=== PATIENT | female | born 1970 | race Caucasian/White ===

== ENCOUNTER 2023-02-13 11:57 | Emergency (ER) | payer MEDICAID, SELFPAY ==
[2023-02-13] VITALS (10 sets, daily range): BP systolic 97–125; BP diastolic 55–68; PULSE 80–103; RESP 16–25; TEMP 37.7; O2SAT 96–100; BMI 22.3
--- NOTE | 2023-02-13 12:08 | W.ED.BACK ---
HPI - Back Pain/Injury General: Chief Complaint: Back Pain/Injury Stated Complaint: BACK PAIN Time Seen by Provider: 02/13/23 11:59 Source: patient Mode of arrival: ambulatory History of Present Illness: 52-year-old female presents emergency room with complaints of severe back pain and fever at home she has been dizzy and nauseous. She has not had any particular shortness of breath. She has not had any vomiting she has had some moderate dysuria. Severe flank pain right worse than the left. MD elicited complaint: back pain Onset (ago): hour(s) Timing: constant Severity: moderate Quality: aching Location: lumbar spine Exacerbating factors: none Relieving factors: none Associated symptoms: Deny abdominal pain, arthralgias, chills, change in bowel habits, difficulty walking, dysuria, fatigue, fecal incontinence, fever(s), hematuria, myalgias, nausea, numbness, syncope, tingling/numbness/burning, urinary frequency, urinary urgency, vomiting or weakness Review of Systems Const: Denies: fever(s), chills or fatigue Card: Denies: chest pain or syncope Resp: Denies: dyspnea GI: Denies: abdominal pain, nausea, vomiting, fecal incontinence or change in bowel habits : Denies: dysuria, urinary frequency, urinary urgency or hematuria Musc: Reports: back pain; Denies: neck pain Skin/Breast: Denies: rash Neuro: Denies: difficulty walking Physical Exam Const: GENERAL APPEARANCE: cooperative and comfortable ORIENTATION/CONSCIOUSNESS: Yes awake, Yes oriented to person, Yes oriented to place and Yes oriented to time HENMT: COMMON NORMALS: normocephalic, atraumatic and hearing grossly normal bilaterally HEAD & SCALP: normocephalic and atraumatic Resp: COMMON NORMALS: normal respiratory effort, No retractions, No use of accessory muscles and clear to auscultation bilaterally AUSCULTATION: clear to auscultation bilaterally Cardio: COMMON NORMALS: regular rate, regular rhythm and No murmurs present (Cardio) RATE: regular rate RHYTHM: regular rhythm GI: COMMON NORMALS: Soft to palpation and No hepatosplenomegaly present AUSCULTATION: Yes normoactive bowel sounds PALPATION: Yes Soft to palpation, No Tenderness to palpation present (GI), No Guarding due to palpation present (GI) and Yes No hepatosplenomegaly present : BLADDER/KIDNEY EXAM: Yes CVA tenderness (Right greater than left) Back/Pelvis: GENERAL BACK: Yes CVA tenderness (Right greater than left) Extremity: COMMON NORMALS: normal to inspection, capillary refill normal, no clubbing, cyanosis or edema, no calf tenderness and no pedal edema Neuro: SENSORIUM/ORIENTATION: Yes oriented to person, Yes oriented to place and Yes oriented to time Skin: COMMON NORMALS: no rashes or lesions noted GENERAL SKIN EXAM: no rashes or lesions noted Course Vital Signs: Vital signs: Vital Signs Temperature 100 F H 02/13/23 11:59 Pulse Rate 92 02/13/23 21:11 Respiratory Rate 17 02/13/23 20:46 Blood Pressure 110/58 02/13/23 21:11 Pulse Oximetry 98 02/13/23 21:11 Oxygen Delivery Me thod Room Air 02/13/23 20:00 MDM - Back Pain/Injury Medical Decision Making 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 We do not have urology available transfer to [facility] in [place]. Patient will likely need intervention patient kept n.p.o. here cultures have been started patient is given fluids and IV antibiotics. Differential Diagnosis Likely lumbar radiculopathy, sciatica, strain of lumbar region, renal colic and pyelonephritis Medical Records I reviewed the patient's medical records. Labs I reviewed the patient's lab results. 02/13/23 12:24 02/13/23 12:24 Radiology Impressions Chest X-Ray 02/13/23 12:41 IMPRESSION: No acute findings. Abdomen/Pelvis CT 02/13/23 13:51 IMPRESSION: Large 3 cm LEFT renal pelvis calculus with gas in the left collecting system. 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 ADDENDUM: 02/13/23 4911 The findings were verbally communicated via telephone conference with AYAAN SOTO at 2:34 PM TAX FORM PREPARER on 02/13/2023. The findings were acknowledged and understood. Laboratory Results WBC 22.07 10^3/uL (3.29-11.43) H 02/13/23 12:24 RBC 5.88 10^6/uL (3.85-5.65) H 02/13/23 12:24 Hgb 12.00 g/dL (11.27-16.99) 02/13/23 12:24 Hct 38.1 % (36-47) 02/13/23 12:24 MCV 64.8 fl (85-98) L 02/13/23 12:24 MCH 20.4 pg (27-33) L 02/13/23 12:24 MCHC 31.5 g/dL (30-55) 02/13/23 12:24 RDW 15.4 % (12.1-15.1) H 02/13/23 12:24 Plt Count 270 10^3/cmm (157-399) 02/13/23 12:24 MPV 9.1 fL (7.4-10.4) 02/13/23 12:24 Neut % (Auto) 86.7 % 02/13/23 12:24 Lymph % (Auto) 5.0 % 02/13/23 12:24 [place] % (Auto) 7.2 % 02/13/23 12:24 Eos % (Auto) 0.1 % 02/13/23 12:24 Baso % (Auto) 0.4 % 02/13/23 12:24 Neut # (Auto) 19.14 10^3/uL (1.8-7.7) H 02/13/23 12:24 Lymph # (Auto) 1.1 10^3/uL (0.8-4.8) 02/13/23 12:24 [place] # (Auto) 1.6 10^3/uL (0.2-0.9) H 02/13/23 12:24 Eos # (Auto) 0.0 10^3/uL (0.0-0.8) 02/13/23 12:24 Baso # (Auto) 0.1 10^3/uL (0.0-0.1) 02/13/23 12:24 Nucleated RBC % (auto) 0 % 02/13/23 12:24 Nucleated RBCs # 0.0 /100WBC 02/13/23 12:24 Sodium 132 mmol/L (136-145) L 02/13/23 12:24 Potassium 3.9 mmol/L (3.5-5.1) 02/13/23 12:24 Chloride 98 mmol/L (98-107) 02/13/23 12:24 Carbon Dioxide 25 mmol/L (22-29) 02/13/23 12:24 Anion Gap 12.9 (5-19) 02/13/23 12:24 BUN 14 mg/dL (6-20) 02/13/23 12:24 Creatinine 0.7 mg/dL (0.5-0.9) 02/13/23 12:24 GFR Calculation 88.6 mL/min (90-130) L 02/13/23 12:24 Glucose 128 mg/dL (65-115) H 02/13/23 12:24 Calculated Osmolality 276 mOsm/kg (285-295) L 02/13/23 12:24 Lactic Acid 0.9 mmol/L (0.5-2.2) 02/13/23 12:24 Calcium 8.9 mg/dL (8.5-10.5) 02/13/23 12:24 Total Bilirubin 0.9 mg/dL (0.15-1.2) 02/13/23 12:24 AST 24 U/L (0-32) 02/13/23 12:24 ALT 24 U/L (0-33) 02/13/23 12:24 Alkaline Phosphatase 89 U/L (35-105) 02/13/23 12:24 Total Protein 6.5 g/dL (6.6-8.7) L 02/13/23 12:24 Albumin 3.7 g/dL (3.5-5.2) 02/13/23 12:24 Globulin 2.8 g/dL (1.3-4.6) 02/13/23 12:24 Urine Color Dark yellow (Yellow) 02/13/23 13:10 Urine Appearance Cloudy (CLEAR) A 02/13/23 13:10 Urine pH 5 (5-7) 02/13/23 13:10 Ur Specific Dexter 1.015 (1.005-1.030) 02/13/23 13:10 Urine Protein 2+ (Negative) H 02/13/23 13:10 Urine Glucose (UA) Norm (Normal) 02/13/23 13:10 Urine Ketones Negative (Negative) 02/13/23 13:10 Urine Blood 2+ (Negative) H 02/13/23 13:10 Urine Nitrate Positive (Negative) H 02/13/23 13:10 Urine Bilirubin Neg (Negative) 02/13/23 13:10 Urine Urobilinogen Norm mg/dL (Negative) 02/13/23 13:10 Ur Leukocyte Esterase 2+ (Negative) H 02/13/23 13:10 Urine RBC 10-15 /hpf (0-2) H 02/13/23 13:10 Urine WBC >100 /hpf (0-5) H 02/13/23 13:10 Ur Squamous Epith Cells 5-10 /hpf (0-5) H 02/13/23 13:10 Amorphous Sediment Not Reportable 02/13/23 13:10 Urine Bacteria 2+ /hpf (NONE) H 02/13/23 13:10 Coronavirus 229E (PCR) Not detected (NOT DETECT) 02/13/23 12:20 Human Metapneumovir PCR Not detected (NOT DETECT) 02/13/23 14:19 Influenza Type A Ag negative (Negative) 02/13/23 12:20 Influenza Type B Ag negative (Negative) 02/13/23 12:20 Entero/Rhino (PCR) Detected (NOT DETECT) A 02/13/23 14:19 SARS-CoV-2 (PCR) Not detected (NOT DETECT) 02/13/23 12:20 All radiology interpretation(s) finalized by discharge Discharge Plan Discharge Patient Disposition: Xfer Short-Term Hosp Condition: Stable Coding Level of Care Code ED Drop Pit Worker for Tee Simon
[2023-02-13 12:33] LABS: Basophils # 0.1 10^3/uL (0.0-0.1); Basophils % 0.4 %; Eosinophils % 0.1 %; Hematocrit 38.1 % (36-47); Lymphocytes # 1.1 10^3/uL (0.8-4.8); Mean Corpuscular HGB Conc 31.5 g/dL (30-55); Mean Corpuscular Hemoglobin 20.4 pg (27-33); Mean Corpuscular Volume 64.8 fl (85-98); Mean Platelet Volume 9.1 fL (7.4-10.4); Monocytes # 1.6 10^3/uL (0.2-0.9); Monocytes % 7.2 %; Neutrophils # 19.14 10^3/uL (1.8-7.7); Neutrophils % 86.7 %; Nucleated Red Blood Cells % 0 %; Platelet Count 270 10^3/cmm (157-399); Red Blood Count 5.88 10^6/uL (3.85-5.65); Red Cell Distribution Width 15.4 % (12.1-15.1); White Blood Count 22.07 10^3/uL (3.29-11.43)
--- NOTE | 2023-02-13 12:41 | XRR_ITS ---
PROCEDURE INFORMATION: Exam: XR Chest Exam date and time: 02/13/2023 1:37 PM Age: 52 years old Clinical indication: Patient HX: Dyspnea; Cough; Back pain; AMS; SOB TECHNIQUE: Imaging protocol: Radiologic exam of the chest. Views: 1 view. COMPARISON: No relevant prior studies available. FINDINGS: Lungs: No consolidation. Pleural spaces: No pleural effusion. No pneumothorax. Heart/Mediastinum: No cardiomegaly. Bones/joints: No acute findings. XR/XR chest 1V portable [id number] IMPRESSION: No acute findings.
[2023-02-13 12:48] LABS: Influenza A by IFA negative (Negative); Influenza B by IFA negative (Negative)
[2023-02-13 12:53] LABS: Alanine Aminotransferase 24 U/L (0-33); Albumin Level 3.7 g/dL (3.5-5.2); Alkaline Phosphatase 89 U/L (35-105); Anion Gap 12.9 (5-19); Aspartate Amino Transferase 24 U/L (0-32); Blood Urea Nitrogen 14 mg/dL (6-20); Calcium 8.9 mg/dL (8.5-10.5); Carbon Dioxide 25 mmol/L (22-29); Chloride 98 mmol/L (98-107); Creatinine Clr Calc Pharmacy 85.6175; Globulin 2.8 g/dL (1.3-4.6); Glomerular Filtration Rate 88.6 mL/min (90-130); Glucose 128 mg/dL (65-115); Lactic Sepsis W/Reflex 0.9 mmol/L (0.5-2.2); Osmolality Calculated 276 mOsm/kg (285-295); Potassium 3.9 mmol/L (3.5-5.1); Sodium 132 mmol/L (136-145); Total Bilirubin 0.9 mg/dL (0.15-1.2); Total Protein 6.5 g/dL (6.6-8.7)
[2023-02-13 13:40] LABS: Blood Urine 2+ (Negative); Glucose Urine UA Norm (Normal); Ketones Urine Negative (Negative); Protein Urine 2+ (Negative); Specific Gravity, Urine 1.015 (1.005-1.030); Urine Appearance Cloudy (CLEAR); Urine Color Dark Yellow (Yellow); pH Urine 5 (5-7)
[2023-02-13 13:41] LABS: Add Urine Culture? Yes; Add Urine Microscopic? YES; Bacteria Urine 2+ /hpf; Bilirubin Urine Neg (Negative); Leukocyte Esterase Urine 2+ (Negative); Nitrate Urine Positive (Negative); Urobilinogen Urine Norm (Negative); WBC Urine >100 /hpf (0-5)
--- NOTE | 2023-02-13 13:51 | CTR_ITS ---
PROCEDURE INFORMATION: Exam: CT Abdomen And Pelvis Without Contrast Exam date and time: 02/13/2023 2:03 PM Age: 52 years old Clinical indication: Abdominal pain; Localized; Patient HX: Lower back pain, nausea, dizziness and headache since 0800; Additional info: Flank pain TECHNIQUE: Imaging protocol: Computed tomography of the abdomen and pelvis without contrast. Radiation optimization: All CT scans at this facility use at least one of these dose optimization techniques: automated exposure control; mA and/or kV adjustment per patient size (includes targeted exams where dose is matched to clinical indication); or iterative reconstruction. REPORTING DATA: Count of CT and Cardiac NM exams in prior 12 months: This patient has received 0 known CTs and 0 known cardiac nuclear medicine studies in the 12 months prior to the current study. COMPARISON: CR (CHEST, ) 02/13/2023 1:37 PM RADIATION DOSE METRICS: Total DLP (mGy-cm): 338.32 FINDINGS: Liver: No mass. Gallbladder and bile ducts: No calcified stones. No ductal dilation. Pancreas: No ductal dilation. Spleen: No splenomegaly. Adrenal glands: No mass. Kidneys and ureters: Bilateral renal calculi measuring up to 3 cm at the left renal pelvis with air in the collecting system, edematous kidney and perinephric stranding. Periureteral thickening as well. No parenchymal destruction/necrosis. Stomach and bowel: No obstruction. Appendix: Normal appendix. Intraperitoneal space: No free air. No significant fluid collection. Vasculature: No abdominal aortic aneurysm. Lymph nodes: No enlarged lymph nodes. Urinary bladder: Foci of gas within the urinary bladder. Reproductive: Unremarkable as visualized. Bones/joints: Degenerative changes without acute findings. Soft tissues: Unremarkable. CT/CT kidney stone [id number] IMPRESSION: Large 3 cm LEFT renal pelvis calculus with gas in the left collecting system. 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
[2023-02-13] MEDS: sodium chloride 0.9% 1,000 ML 999 ML IV (13:58)
[2023-02-13] MEDS: cefTRIAXone 1,000 MG in sodium chloride 0.9% (plus) 50 ML 100 MG IV (13:58)
[2023-02-13] MEDS: acetaminophen 500 mg Tablet 1000 MG PO (14:05)
[2023-02-13 14:16] LABS: Adenovirus Not Detected (NOT DETECT); Chlamydia Pneumoniae Not Detected (NOT DETECT); Coronavirus 229E,HKU1,NL63,OC4 Not Detected (NOT DETECT); Human Metapneumovirus Not Detected (NOT DETECT); Human Rhinovirus/Enterovirus Detected (NOT DETECT); Influenza A Not Detected (NOT DETECT); Influenza A H1 Not Detected (NOT DETECT); Influenza A H1-2009 Not Detected (NOT DETECT); Influenza A H3 Not Detected (NOT DETECT); Influenza B Not Detected (NOT DETECT); Mycoplasma Pneumoniae Not Detected (NOT DETECT); Parainfluenza Virus Type 1 Not Detected (NOT DETECT); Parainfluenza Virus Type 2 Not Detected (NOT DETECT); Parainfluenza Virus Type 3 Not Detected (NOT DETECT); Parainfluenza Virus Type 4 Not Detected (NOT DETECT); Respiratory Syncytial Virus A Not Detected (NOT DETECT); Respiratory Syncytial Virus B Not Detected (NOT DETECT); SARS-COV-2 Not Detected (NOT DETECT)
[2023-02-13 14:19] LABS: Human Metapneumovirus Not Detected (NOT DETECT); Human Rhinovirus/Enterovirus Detected (NOT DETECT); Results from Genmark
--- NOTE | 2023-02-13 15:13 | PC.NURSE ---
per accepting facility, Dr. Parth Thapa (urologist), wants pt kept NPO. pt has been NPO since arrival to ER. pt notified of this verbal order. had no further questions at this time.
--- NOTE | 2023-02-13 19:21 | PC.NURSE ---
report called to Kandis Lee to Kristine Severino on 3B room 3166-1. No further questions from Kristine. pt updated on transfer status.
[2023-02-13] MEDS: HYDROmorphone 1 mg/mL INJ 1 mL IVP ×2 (20:11→20:46)
== END 2023-02-13 21:01 | disposition short-term general hospital (02) ==
PROVIDERS: Emergency Provider Family Medicine
DX: A41.9 Sepsis, unspecified organism (principal); N10 Acute pyelonephritis; N20.0 Calculus of kidney; Z11.52 Encounter for screening for COVID-19
CPT/HCPCS: 36415; 71045; 74176; 80053; 81001; 83605; 85025; 87040; 87077; 87086; 87186; 87635; 87801; 87804; 96365; 96366; 96375; 96376; 99285; J0696; J1170; J7030

== ENCOUNTER 2023-09-22 14:52 | Emergency (ER) | payer MEDICAID, SELFPAY ==
[2023-09-22 14:54] VITALS: BP 120/69; PULSE 80; TEMP 36.6; O2SAT 99
--- NOTE | 2023-09-22 14:59 | W.ED.ALLEREA ---
HPI - Allergic Reaction General: Chief complaint: Abdominal Pain Stated complaint: abd pain Time Seen by Provider: 09/22/23 14:54 History of Present Illness: HPI narrative: 52-year-old female comes in today for concerns of reaction to wasp being. Patient allegedly was stung by a wasp and had felt itching and nausea to the point that she was concerned he was having allergic reaction. Patient dosed herself with a dose of epinephrine from her own pen. Patient was given a second dose by a anesthesia director. Patient feels resolution of symptoms except for some dyspepsia. Patient reports use of Adderall intermittently for ADHD. Patient does not routinely see a medical provider. Patient reports Adderall is from a old prescription from her prior physician. Patient patient dose of epinephrine was given about 1-1/2 to 2 hours prior to arrival. Associated symptoms: Reports nausea Review of Systems General: Reports: 10 or more systems reviewed and unremarkable except in HPI and below GI: Reports: nausea Skin/Breast: Reports: pruritus Physical Exam Const: COMMON NORMALS: alert HENMT: COMMON NORMALS: normocephalic HEAD & SCALP: normocephalic Neck/C-Spine: COMMON NORMALS: full ROM Chest: COMMONS NORMALS: normal inspection of the chest Resp: COMMON NORMALS: normal respiratory effort and clear to auscultation bilaterally AUSCULTATION: clear to auscultation bilaterally Cardio: COMMON NORMALS: regular rate and regular rhythm RATE: regular rate RHYTHM: regular rhythm GI: COMMON NORMALS: Soft to palpation and non-tender PALPATION: Yes Soft to palpation : COMMON NORMALS: Yes no CVA tenderness BLADDER/KIDNEY EXAM: Yes no CVA tenderness Back/Pelvis: COMMON NORMALS: no CVA tenderness Extremity: COMMON NORMALS: normal to inspection Neuro: SENSORIUM/ORIENTATION: Yes alert Skin: COMMON NORMALS: turgor normal GENERAL SKIN EXAM: turgor normal Course Vital Signs: Vital signs: Vital Signs Temperature 97.9 F 09/22/23 14:54 Pulse Rate 72 09/22/23 16:04 Blood Pressure 120/64 09/22/23 16:04 Pulse Oximetry 98 09/22/23 16:04 Oxygen Delivery Me thod Room Air 09/22/23 14:54 MDM - Allergic Reaction Medical Decision Making 52-year-old female comes in today after a reaction to a wasp sting. Patient appears nontoxic. Patient appears no acute distress. Patient is alert and oriented. Patient was dosed with 2 doses of epinephrine prior to EMS arrival. EMS reports no further medication given. Patient refused IV and route. Patient reports some midepigastric discomfort at this time. Differential diagnosis includes anaphylaxis, allergic reaction, GERD, substance use disorder. 1510, patient refused lab for further evaluation of stomach discomfort. Patient reports her stomach feels much better since arriving to the ER. EKG and chest x-ray was unremarkable. Patient was medicated with famotidine and diphenhydramine with improvement of symptoms. Patient refused dexamethasone.. 1640, no recurrence of symptoms. Patient was discharged home prescription to for EpiPen sent to [facility] pharmacy. Lab Data Radiology Impressions Chest X-Ray 09/22/23 15:57 IMPRESSION: Previous densities over both lungs shown to be overlying artifact. All radiology interpretation(s) finalized by discharge EKG Data EKG 1: I personally reviewed and interpreted this EKG as follows: EKG interpretation date: 09/22/23 EKG interpretation time: 15:16 Prior EKG tracings: not available for review Interpretation: EKG shows a sinus rhythm with a sinus arrhythmia irregular rate of [address] elevation or ectopy is noted. No prior exam available for comparison. Channel Intellectuter generated interpretation: Sinus rhythm with sinus arrhythmia. Borderline right axis deviation. Borderline EKG. Unconfirmed report. Discharge Plan Discharge Patient Disposition: Home Clinical Impression: Allergic reaction to wasp sting Condition: Stable Prescriptions: New epinephrine 0.3 mg/0.3 mL syringe 0.3 mg IM Q10M PRN (Reason: anaphylaxis) Qty: 2 0RF Rx Instructions: for 2 doses Discharge Orders: Discharge ED (Routine); Ordered 09/22/23 Ordered By: Ephraim Gleason Discharge Diet: Usual diet Discharge Activity: Increase activity as tolerated Patient Instructions: Insect Bite or Sting (ED) Activity Restrictions/Additional Instructions: Follow-up with primary care in 3 to 5 days for recheck. Continue with Benadryl or other antihistamine as needed for itching or rash. Return to ER for worsening symptoms such as high fever greater than 100.4, chest pain, or increased shortness of breath. Coding Level of Care Code ED Show Host/Hostess for Tee Simon
--- NOTE | 2023-09-22 15:00 | XR_ITS ---
WS: [id number] PORTABLE CHEST HISTORY: dyspnea COMPARISON: 02/13/2023 Mild pulmonary hyperexpansion. There are several scattered nodules throughout each lung. These were n ot present on 02/13/2023. I suspect this is probably artifact on patient's clothing. Some of these no dules extend below the lungs. Cardiac size: Normal. Mediastinum/Aorta: Normal mediastinum. No osseous abnormality seen. XR/XR chest 1V portable [id number] IMPRESSION: 1. There are numerous small calcific densities over each lung. I suspect this may be artifact on the patient's clothing as these findings were not present on 02/13/2023. Recommend repeat chest radiograph at no additional charge. 2. Mild pulmonary hyperexpansion.
--- NOTE | 2023-09-22 15:14 | ECG_ITS ---
[facility] Test Date: 2023-09-22 Pat Name: Kathy Bess Department: Room: Gender: Female Slip Laster: : 1970 Requested By: Ephraim Biswas Order Number: [id number] Dietz MD: Conor Gomez M.D. Measurements Intervals [place] Rate: 67 P: 71 OH: 198 QRS: 96 QRSD: 104 T: 69 QT: 418 QTc: 442 Interpretive Statements SINUS RHYTHM WITH SINUS ARRHYTHMIA BORDERLINE RIGHT AXIS DEVIATION [QRS AXIS > 90] No previous ECG available for comparison Electronically Signed On 09-22-2023 16:11:31 CDT by Conor Gomez M.D. [id number]
[2023-09-22] MEDS: diphenhydrAMINE 50 mg Capsule PO (15:25)
[2023-09-22] MEDS: famotidine 20 mg Tablet 40 MG PO (15:25)
--- NOTE | 2023-09-22 15:57 | XR_ITS ---
WS: [id number] XR chest 1V portable [id number] REASON FOR EXAM: repeat in gown, believe artifact FINDINGS: The multiple small calcific appearing densities which were seen overlying both lungs are no longer id entified and presumably represented overlying artifact. The chest is otherwise unchanged with mild hyperexpansion and no other significant cardiopulmonary ab normality. XR/XR chest 1V portable [id number] IMPRESSION: Previous densities over both lungs shown to be overlying artifact.
[2023-09-22 16:04] VITALS: BP 120/64; PULSE 72; O2SAT 98
[2023-09-22 16:42] VITALS: BP 120/64; PULSE 72; TEMP 36.6; O2SAT 98
== END 2023-09-22 16:46 | disposition home or self-care (01) ==
PROVIDERS: Emergency Provider Nurse Practitioner Family
DX: T63.461A Toxic effect of venom of wasps, accidental (unintentional), initial encounter (principal); I49.8 Other specified cardiac arrhythmias
CPT/HCPCS: 71045; 93005; 99284; Q0163

== ENCOUNTER 2023-10-16 10:08 | Emergency (ER) | payer MEDICAID, SELFPAY ==
[2023-10-16 10:12] VITALS: BP 131/79; PULSE 82; RESP 18; TEMP 36.4; O2SAT 98
--- NOTE | 2023-10-16 11:52 | USR_ITS ---
PROCEDURE INFORMATION: Exam: US Duplex Upper Extremity Veins, Bilateral, Complete Exam date and time: 10/16/2023 12:24 PM Age: 52 years old Clinical indication: Pain; Arm, upper; Bilateral; Additional info: Bilateral hand pain and swelling TECHNIQUE: Imaging protocol: Real-time duplex ultrasound of the extremities with 2-D seals scale, color Doppler flow and spectral waveform analysis including responses to compression and other maneuvers (when performed) with image documentation. Complete exam focused on the bilateral upper extremity veins. COMPARISON: No relevant prior studies available. FINDINGS: Right deep veins: Internal jugular, innominate, subclavian, axillary, brachial, radial and ulnar veins patent without thrombus. Normal compressibility, augmentation response and/or Doppler waveforms. Left deep veins: Internal jugular, innominate, subclavian, axillary, brachial, radial and ulnar veins patent without thrombus. Normal compressibility, augmentation response and/or Doppler waveforms. Superficial veins: Unremarkable. Visualized cephalic and basilic veins are patent without thrombus. Soft tissues: Unremarkable. US/[place] [id number] IMPRESSION: No sonographic evidence of deep venous thrombosis.
--- NOTE | 2023-10-16 12:12 | W.ED.EXTPRO ---
HPI - Extremity Problem General: Chief complaint: Extremity Problem,Nontraumatic Stated complaint: hands swelling Time Seen by Provider: 10/16/23 11:42 History of Present Illness: 52-year-old female who presents with bilateral hand pain and swelling. The patient was seen in urgent care yesterday, started on steroids and anti-inflammatories and feels she is not getting any better. She has a history of carpal tunnel syndrome. She is not wearing her wrist splints. She states that today both hands feel completely numb and she is concerned that she has a blood clot. She does significant physical labor Related Data Previous Rx's Medication Instructions Recorded epinephrine 0.3 mg/0.3 mL 0.3 mg (0.3 mL) IM Q10M PRN 09/22/23 injection syringe anaphylaxis #2 ea hydrocodone 5 mg-acetaminophen 325 1 tab PO Q4H PRN pain #10 tabs 10/16/23 mg tablet Allergies Allergy/AdvReac Type Severity Reaction Status Date / Time bee venom protein (honey bee) Allergy ALGY-Rash Verified 09/22/23 15:01 Review of Systems General: Reports: 10 or more systems reviewed and unremarkable except in HPI and below Physical Exam Const: COMMON NORMALS: no acute distress, healthy appearing and alert Neck/C-Spine: OTHER: Trachea midline, no cervical spine tenderness Resp: OTHER: No respiratory distress Extremity: NARRATIVE EXTREMITY EXAM: Patient has bilateral hand swelling, hands are warm, pink with normal capillary refill. Intact motor and sensory function. No forearm tenderness or swelling. RIGHT LOWER EXTREMITY: Yes knee joint (Mild swelling of the right knee with a positive joint effusion. ) OTHER: Right knee has full range of motion, no deformity. There is no calf tenderness or thigh tenderness. Distal neurovascular function is intact. Negative Homans' sign. Neuro: SENSORIUM/ORIENTATION: Yes alert Course ED course: Patient's had an upper extremity bilateral venous Doppler which is negative for DVT. I feel the patient's symptoms are related to carpal tunnel syndrome. She already has steroids and anti-inflammatories as previously prescribed by urgent care. Will give the patient [place] 5 to take every 4-6 hours as needed for severe pain. I have encouraged the patient to wear her wrist splints at all times while she is having pain. When her pain improves, she can wear them just with sleeping. I have encouraged her to avoid the physical activity until her symptoms have improved. She needs to continue taking the steroids and the anti-inflammatories. Ice, elevation and rest. Follow-up next week with her primary care provider if her symptoms or not improving for possible orthopedic surgery referral Vital Signs: Vital signs: Vital Signs Temperature 97.5 F L 10/16/23 10:12 Pulse Rate 82 10/16/23 10:12 Respiratory Rate 18 10/16/23 10:12 Blood Pressure 131/79 10/16/23 10:12 Pulse Oximetry 98 10/16/23 10:12 Oxygen Delivery Me thod Room Air 10/16/23 10:12 MDM - Extremity (Nontraumatic) Medical Decision Making 52 old female who presents with bilateral hand pain and swelling and associated right knee swelling. She is afebrile. She has no associated overlying skin erythema or warmth. Do not feel that this is septic arthritis. Suspect that her hands are related to carpal tunnel. I have offered the patient an IM steroid injection which she has declined. Will obtain a venous Doppler to rule out DVT. Patient has right knee swelling, with an associated joint effusion but no associated erythema or induration. No trauma so I suspect this is just an inflammatory/arthritic joint effusion. She has no calf tenderness and a negative Homans, do not feel that DVT in the lower extremity is likely. Lab Data Radiology Impressions Venous Duplex 10/16/23 11:52 IMPRESSION: No sonographic evidence of deep venous thrombosis. All radiology interpretation(s) finalized by discharge ED provider radiology interpretation(s): Venous Doppler of her upper extremities bilaterally per radiologist is negative for DVT Discharge Plan Discharge Patient Disposition: Home Clinical Impression: Bilateral carpal tunnel syndrome Condition: Stable Prescriptions: New hydrocodone-acetaminophen 5-325 mg tablet 1 tab PO Q4H PRN (Reason: pain) Qty: 10 0RF No Action epinephrine 0.3 mg/0.3 mL syringe 0.3 mg IM Q10M PRN (Reason: anaphylaxis) Qty: 2 0RF Rx Instructions: for 2 doses Discharge Orders: Discharge ED (Routine); Ordered 10/16/23 Ordered By: Earline Uribe Referrals: Giulia Zhang NP [Primary Care Provider] - (follow up next week with your primary provider if not improved) Discharge Diet: Advance as tolerated Discharge Activity: Limit activity as instructed Patient Instructions: Opioid Safety, Pain Management Activity Restrictions/Additional Instructions: Wear the wrist splints at night while you are sleeping and while your hands are continuing to hurt, you should wear them during the day with activity. Once the pain improves, you can wear them just while you are sleeping. Take the medications you have been previously prescribed. You can take the [place] every 4-6 hours as needed for severe pain. Ice your hands, keep them elevated. Avoid repetitive activity for the next 5 to 7 days. Follow-up this next week with your primary care provider if you are not improving Coding Level of Care Code ED Geology Instructor for Tee Simon
[2023-10-16 14:00] VITALS: BP 119/70; PULSE 98; RESP 20; O2SAT 97
== END 2023-10-16 14:21 | disposition home or self-care (01) ==
PROVIDERS: Emergency Provider Emergency Medicine; PCP Nurse Practitioner Family
DX: G56.03 Carpal tunnel syndrome, bilateral upper limbs (principal)
CPT/HCPCS: 93970; 99284

== ENCOUNTER → 2023-11-09 14:33 | Outpatient (BNVA) | payer MEDICAID, SELFPAY | PROVIDERS: PCP Nurse Practitioner Family; Visit Provider Physician Assistant | DX: G56.03 Carpal tunnel syndrome, bilateral upper limbs (principal); G56.23 Lesion of ulnar nerve, bilateral upper limbs; M79.641 Pain in right hand; M79.642 Pain in left hand | CPT/HCPCS: 73130 ==

== ENCOUNTER 2024-10-08 17:20 | Emergency (ER) | payer MEDICAID, SELFPAY ==
[2024-10-08 17:21] VITALS: PULSE 90; RESP 16; TEMP 36.6; O2SAT 99; BMI 23.1
--- NOTE | 2024-10-08 17:21 | ED_ITS ---
HPI - Abdominal Pain General: Chief Complaint: Allergic Reaction Stated Complaint: bee sting Time Seen by Provider: 10/08/24 17:21 History of Present Illness: Patient presents to the ED following an insect sting that occurred approximately 3 hours ago (around 3:00 PM). Patient reports being stung on the foot but did not visualize the insect. Patient states this has happened five, six times before and knows they are allergic to insect stings. Following the sting, patient experienced localized pain and itching. Patient self-administered 4 Benadryl tablets (25mg each, total 100mg) but did not use their prescribed EpiPen because they don't like it. Within 5 minutes of taking Benadryl, patient developed nausea, vomiting, and became incoherent. Patient also reports experiencing tingling in the mouth. Patient states this is the worst it's been compared to previous reactions. Patient confirms having an EpiPen prescription but requires a refill. Related Data Home Medications ?Medication ?Instructions ?Recorded ?Confirmed ibuprofen 200 mg capsule 200 mg PO Q6H PRN 11/09/23 0 11/09/23 Previous Rx's ?Medication ?Instructions ?Recorded epinephrine 0.3 mg/0.3 mL 0.3 mg (0.3 mL) IM Q10M PRN 09/22/23 injection syringe anaphylaxis #2 ea hydrocodone 5 mg-acetaminophen 325 1 tab PO Q4H PRN pa in #10 tabs 10/16/23 mg tablet epinephrine 0.3 mg/0.3 mL 0.3 mg (0.3 mL) IM Q10M PRN 10/08/24 injection, auto-injector (EpiPen anaphylaxis #2 ea 2-Edwin) Allergies Allergy/AdvReac Type Severity Reaction Status Date / Time venom-wasp Allergy UNKNOWN Verified 11/09/23 15:01 Review of Systems General: Reports: 10 or more systems reviewed and unremarkable except in HPI and below PFSH ED PFSH: Social History Smoking and tobacco/nicotine status: current every day tobacco/nicotine user Physical Exam Const: COMMON NORMALS: no acute distress, patient oriented x3, alert and well nourished HENMT: COMMON NORMALS: normocephalic HEAD & SCALP: normocephalic Eye: COMMON NORMALS: Equal, round and reactive pupils present, EOMs intact bilaterally and conjunctivae normal CONJUNCTIVA: Yes conjunctivae normal PUPIL: Yes Equal, round and reactive pupils present Neck/C-Spine: COMMON NORMALS: full ROM, no lymphadenopathy, supple, no meningeal signs, no JVD and Thyroid normal THYROID: Thyroid normal Resp: COMMON NORMALS: normal respiratory effort, No retractions, No use of accessory muscles, clear to auscultation bilaterally and percussion normal AUSCULTATION: clear to auscultation bilaterally PERCUSSION: percussion normal Cardio: COMMON NORMALS: no JVD GI: COMMON NORMALS: Normal to inspection, nondistended, normoactive bowel sounds present, Soft to palpation, non-tender, No hepatosplenomegaly present, no masses and no bruits PALPATION: Yes Soft to palpation and Yes No hepatosplenomegaly present Extremity: COMMON NORMALS: normal to inspection, full ROM, capillary refill normal, no joint enlargement, no clubbing, cyanosis or edema, no calf tenderness and no pedal edema Neuro: COMMON NORMALS: patient oriented x3 SENSORIUM/ORIENTATION: Yes alert MENINGEAL SIGNS: Yes no meningeal signs Skin: NARRATIVE SKIN EXAM: Small area on right lower extremity of apparent arthropod bite without surrounding erythema or marked swelling. Course Vital Signs: Vital signs: Vital Signs Temperature 97.9 F 10/08/24 17:21 Pulse Rate 90 10/08/24 17:21 Respiratory Rate 16 10/08/24 17:21 Blood Pressure 135/73 10/08/24 17:28 Pulse Oximetry 99 10/08/24 17:21 Oxygen Delivery Me thod Room Air 10/08/24 17:21 MDM - Abdominal Pain Medical Decision Making 1. Insect Sting with Allergic Reaction: - Not consistent with anaphylaxis at this time, as presentation is 3 hours post- exposure with stable vital signs and no respiratory compromise - Symptoms likely exacerbated by Benadryl overdose (100mg taken instead of recommended 25-50mg) - Plan: Local wound care with soap and water cleaning, topical hydrocortisone for inflammation 2. Medication Management: - EpiPen prescription refilled for future use - Patient educated on appropriate Benadryl dosing (25-50mg, not to exceed 2 tablets at once) - Patient educated on indications for EpiPen use: symptoms beyond local skin reaction, including respiratory distress, trouble swallowing, lip/tongue swelling, or significant weakness - Advised that epinephrine is more effective than antihistamines for true anaphylactic reactions 3. Follow-up: - Follow up with PCP as needed - Return to ED immediately if symptoms worsen or if EpiPen is used No radiology studies performed this visit Discharge Plan Discharge Patient Disposition: Home Clinical Impression: Allergic reaction, Adverse drug effect Condition: Stable Prescriptions: New epinephrine [EpiPen 2-Edwin] 0.3 mg/0.3 mL auto-injector 0.3 mg IM Q10M PRN (Reason: anaphylaxis) Qty: 2 0RF Rx Instructions: for 2 doses Continued ibuprofen 200 mg capsule 200 mg PO Q6H PRN epinephrine 0.3 mg/0.3 mL syringe 0.3 mg IM Q10M PRN (Reason: anaphylaxis) Qty: 2 0RF Rx Instructions: for 2 doses hydrocodone-acetaminophen 5-325 mg tablet 1 tab PO Q4H PRN (Reason: pain) Qty: 10 0RF Discharge Orders: Discharge ED (Routine); Ordered 10/08/24 Ordered By: Boy Bui Referrals: Giulia Zhang NP [Primary Care Provider, Nurse Practitioner] Discharge Diet: Advance as tolerated Discharge Activity: Resume usual activity Patient Instructions: Opioid Safety, Pain Management, Patient Portal & Chely Instructions Activity Restrictions/Additional Instructions: 1. Take Benadryl as directed only. Wash area with soap and water and apply [id number] hydrocortisone if needed. 2. Carry an EpiPen with patient. Make a follow-up appointment with primary care. Call tomorrow for appointment. 3. Return for new or different symptoms including if she has to use the EpiPen in the future. Print Language: Macedonian Coding Level of Care Code ED Secretary Office Clerk for Tee Simon
[2024-10-08 17:28] VITALS: BP 135/73
--- OUTSIDE RECORDS SUMMARY | 2024-10-08 17:30 | XMS_ITS | Encounter Summary ---
Author Organization [facility] Address [address] [place] [address] Care Team Providers Care Log Hooker Name Role Phone Gregorio Angel MD Primary Care Provider + Encounter Details Date Type Department Care Team (Late st Contact Info) Description 04/06/2023 Telephone [facility] [place] [address]tr[address], [address] [place] [address] Yasmin Mcclellan MD [address] [place] [address] Social History Tobacco Use Types Packs/Day Years Used Date Smoking Tobacco: Every Day Cigarettes Smokeless Tobacco: Never Alcohol Use Standard Drinks/Week Comments No 0 (1 standard drink = 0.6 oz pur e alcohol) Feeling Safe Answer Date Recorded Are you in a relationship wi th someone who hurts you emotionally and/or physically? 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 [phone] Spoke with Ema. Ema stated that pt was there in her clinic and had a stead stream of urine coming from the drain and skin is irritated. Informed Ema to have pt go to the nearest ER and have imaging done to see if the kidney has healed or not. Ema voiced understanding and stated she will tryto get pt to go to the ER. NCE PROFESSOR * Telephone Encounter - Dixie Ruvalcaba - 04/06/2023 2:47 PM CST [facility] called in requesting urology records for Emagilmar Crystalley pts physician. callback number [phone] NCE PROFESSOR documented in this encounter Plan of Treatment Not on file documented as of this encounter Visit Diagnoses Not on filedocumented in this encounter Care Teams Log Hooker Relationship Specialty Start Date End Date Gregorio Angel MD [address] [place] [id number] PCP - General Family Practice 12/03/11 documented as of this encounter
--- OUTSIDE RECORDS SUMMARY | 2024-10-08 17:30 | XMS_ITS | Encounter Summary ---
Author Organization [facility] Address [address] [place] [address] Care Team Providers Care Satellite Technician Name Role Phone Gregorio Angel MD Primary Care Provider + Encounter Details Date Type Department Care Team (Latest Contact Info) Description 10/27/2004 Outpatient Historical [facility] Medicine[address] [phone] Estuardo Goddard MD [facility] [place] [address] TWIN -UNSPEC (Primary Dx); SUPERVIS OTHER NORMAL PREG Social History Tobacco Use Types Packs/Day Years Used Date Smoking Tobacco: Never Assessed Comments Unknown Sex and Gender Information Value Date Recorded Sex Assigned at Not on file 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
--- OUTSIDE RECORDS SUMMARY | 2024-10-08 17:30 | XMS_ITS | Encounter Summary ---
Author Organization [facility] Address [address] [facility] Attn: Epic Prelude ADT [place] FRENCH [address] Care Team Providers Care Injection Mold Technician Name Role Phone Gregorio Angel MD Primary Care Provider + Encounter Details Date Type Department Care Team (Late st Contact Info) Description 02/03/2001 Outpatient Historical Nick Rojas MD [address] [facility] [address] [place] [phone] Social History Tobacco Use Types Packs/Day Years Used Date Smoking Tobacco: Never Assessed Comments Unknown Sex and Gender Information Value Date Recorded Sex Assigned at Not on file 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
--- OUTSIDE RECORDS SUMMARY | 2024-10-08 17:30 | XMS_ITS | Encounter Summary ---
Author Organization [facility] Address [address] [place] [address] Care Team Providers Care Fisher Lobster Name Role Phone Gregorio Angel MD Primary Care Provider + Encounter Details Date Type Department Care Team (Latest Contact Info) Description 12/03/2004 Outpatient Historical [facility] Medicine- [address] [phone] Estuardo Goddard MD [address] [place] [address] SUPRV HIGH-RISK PREG NOS (Primary Dx); TWIN -UNSPEC Social History Tobacco Use Types Packs/Day Years Used Date Smoking Tobacco: Never Assessed Comments Unknown Sex and Gender Information Value Date Recorded Sex Assigned at Not on file 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
--- OUTSIDE RECORDS SUMMARY | 2024-10-08 17:30 | XMS_ITS | Encounter Summary ---
Author Organization [facility] Address [address] [place] [address] Care Team Providers Care Biztalk Architect Name Role Phone Gregorio Angel MD Primary Care Provider + Encounter Details Date Type Department Care Team (Latest Contact Info) Description 07/08/2001 Outpatient Historical [facility] Medicine[address] [phone] Nick Rojas MD [address] [address] SUPERVIS OTHER NORMAL PREG (Primary Dx) Social History Tobacco Use Types Packs/Day Years Used Date Smoking Tobacco: Never Assessed Comments Unknown Sex and Gender Information Value Date Recorded Sex Assigned at Not on file 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
--- OUTSIDE RECORDS SUMMARY | 2024-10-08 17:30 | XMS_ITS | Encounter Summary ---
Author Organization [facility] Address [address] [place] [address] Care Team Providers Care Production Expediter Name Role Phone Gregorio Angel MD Primary Care Provider + Encounter Details Date Type Department Care Team (Latest Contact Info) Description 06/23/2001 Outpatient Historical [facility] Medicine[address] [phone] Nick Rojas MD [address] [address] SUPERVIS OTHER NORMAL PREG (Primary Dx) Social History Tobacco Use Types Packs/Day Years Used Date Smoking Tobacco: Never Assessed Comments Unknown Sex and Gender Information Value Date Recorded Sex Assigned at Not on file 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
--- OUTSIDE RECORDS SUMMARY | 2024-10-08 17:30 | XMS_ITS | Clinical Summary ---
Author Organization [address] Address [address] [facility] [place] [address] Care Team Providers Care Shop Foreman Name Role Phone Gregorio Angel MD Primary Care Provider + Allergies No known active allergies Medications vit-iron fumarate-FA ( PLUS) 27-1 mg Oral Tab Take 1 Tab by mouth daily with breakfast. 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 01/11/2012 Family History Medical History Relation Name Comments Healthy Brother 1 Healthy Brother 2 Healthy Brother 3 Healthy Brother 4 Cancer Father lung Other Maternal Grandfather Elijah on's Colon Cancer Maternal Grandmother Healthy Mother Healthy Sister 1 Healthy Sister 2 Healthy Sister 3 Healthy Sister 4 Healthy Son 1 Healthy Son 2 Healthy Son 3 Healthy Son 4 Healthy Son 5 Relation Name Status Comments Brother 1 Alive Brother 2 Alive Brother 3 Alive Brother 4 Alive Father Maternal Grandfather Maternal Grandmother Mother Alive Paternal Grandfather Paternal Grandmother Sister 1 Alive Sister 2 Alive Sister 3 Alive Sister 4 Alive Son 1 Alive Son 2 Alive Son 3 Alive Son 4 Alive Son 5 Alive Social History Tobacco Use Types Packs/Day Years Used Date Smoking Tobacco: Every Day Cigarettes Smokeless Tobacco: Never Tobacco Cessation:Ready to Q uit: No; Counseling Given: Yes Alcohol Use Standard Drinks/Week Comments No 0 (1 standard drink = 0.6 oz pure alcohol) 3-4x/week. Last Drink around 09/16/11. 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 Gender Identity Not on file Sexual Orientation Not on file Occupation Industry Job Start Date Job End Date Not on file Not on file Not on file Not on file Last Filed Vital Signs Vital Sign Reading Time Taken Comments Blood Pressure 121/66 10/05/2012 1:23 AM CDT Pulse 70 10/05/2012 1:23 AM CDT Temperature 36.7 C (98 F) 10/04/2012 11:53 PM CDT Respiratory Rate 18 10/05/2012 1:23 AM CDT Oxygen Saturation 98% 10/05/2012 1:23 AM CDT Inhaled Oxygen Concentration - - Weight 67.1 kg (148 lb) 10/04/2012 11:53 PM CDT Height 162.6 cm (5' 4 ) 10/04/2012 11:53 PM CDT Body Mass Index 25.4 10/04/2012 11:53 PM CDT Plan of Treatment Health Maintenance Due Date Last Done Comments DTAP/TDAP/TD VACCINES (1 - Tdap) 12/06/1991 HEPATITIS B VACCINES (1 of 3 - 19+ 3-dose series) 11/16 BREAST CANCER SCREENING 2012 PAP SMEAR 11/11/2014 11/12/2011 CERVICAL CANCER SCREENING 11/11/2016 HPV/Cotest (21-29) 11/11/2016 11/12/2011 HPV/Cotest (30-65) 11/11/2016 11/12/2011 COLORECTAL SCREENING 2017 Colorectal Cancer Screening 2017 FIT-DNA Q 3 years 2017 FIT/FOBT Q 1 year 2017 Flex Sig/CT Colonography Q 5 years 2017 ZOSTER VACCINE (1 of 2) 2022 INFLUENZA VACCINE (#1) 2024 Procedures Procedure Name Priority Date/Time Associated Diagnosis Comments CERV/VAG CYTOPATH, THIN PREP W/RFLX HPV Routine 11/12/2011 7:56 AM CDT from Last 3 Months or Most Recently Relevant to Health Maintenance Results * CERV/VAG CYTOPATH, THIN PREP W/RFLX HPV (11/12/2011 7:56 AM CDT) TH THIN PREP CYTOLOGY REPORT REFLEX HPV [facility]atomic Pathology Dept [address] [facility] [address] Patient: KATHY PASCUAL Accn No: [id number] , [id number] Collected: 11/12/2011 7:56:00 AM All cases except those with a DP prefix are performed by pathologists from [facility] at [facility]. Case type DP is performed by Dr. Jim Smyth, [facility], [facility], [address], [address], [place] [address] (CLIA #[id number]) (Ph. [phone]). THIN PREP PAP - REFLEX HPV History Specimen Type: Endocervical LMP: None Provided Previous Pap History: None Provided Specimen Adequacy Satisfactory for interpretation. Shows sufficient numbers of endocervical or metaplastic cells. Diagnosis NEGATIVE FOR INTRAEPITHELIAL LESION OR MALIGNANCY. Fungal organisms morphologically consistent with Margie. Engineering Associate/ EDR Pathologist: 11/18/11 Completed by: JAVI ROGERS BSCT (ASCP) (Electronically signed by) 11/18/11 Comment Routine follow-up is suggested. Important Information About Pap Smears The Pap smear is associated with a low but well-documented and probably irreducible false negative rate of up to 10%. Additionally, the false positive rate for a diagnosis of invasive carcinoma or HSIL has been estimated to be approximately 1-10%. Therefore, any visible lesion on the cervix should be biopsied regardless of Pap smear findings. HPV Testing off the Thin Prep vial can be done as a means of further evaluating a Thin Prep Report. For information about ordering the HPV test, phone Virology at . Treatment or follow-up recommendations (if any) that are contained within this report are based upon general recommendations as contained in 2001 Consensus Guidelines For Cervical Cytological Abnormalities DARIELA: June 08, 2001, and are provided as a general guideline rather than as a specific recommendation. Final decisions about the most appropriate treatment and follow-up should be made on an individualized basis by the treating physician in consultation with his/her patient. [facility] 11/12/2011 7:56 AM CDT us Gregorio Angel MD PATHOLOGY/CYTOLOGY ORDER FRANTZ Edited INTERFACE SYSTEM Refer to clinic/hospital department [facility] [employer] [facility] CLIA# [id number] [address] [place] [address] from Last 3 Months or Most Recently Relevant to Health Maintenance Insurance MEDICAID [place] Care Teams Shop Foreman Relationship Specialty Start Date End Date Gregorio Angel MD PCP - General Family Practice 12/03/11
--- OUTSIDE RECORDS SUMMARY | 2024-10-08 17:30 | XMS_ITS | Encounter Summary ---
Author Organization [facility] Address [address] [place] [address] Care Team Providers Care Strickler Attendant Name Role Phone Gregorio Angel MD Primary Care Provider + Encounter Details Date Type Department Care Team (Latest Contact Info) Description 03/17/2001 Outpatient Historical [facility] Medicine[address] [phone] Nick Rojas MD [address] [phone] SUPERVIS OTHER NORMAL PREG (Primary Dx) Social History Tobacco Use Types Packs/Day Years Used Date Smoking Tobacco: Never Assessed Comments Unknown Sex and Gender Information Value Date Recorded Sex Assigned at Not on file 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
--- OUTSIDE RECORDS SUMMARY | 2024-10-08 17:30 | XMS_ITS | Encounter Summary ---
Author Organization [facility] Address [address] [place] [address] Care Team Providers Care Industrial Technology Teacher Name Role Phone Gregorio Angel MD Primary Care Provider + Encounter Details Date Type Department Care Team (Latest Contact Info) Description 11/24/2004 Outpatient Historical [facility] Medicine[address] [phone] Estuardo Goddard MD [facility] [place] [address] TWIN -UNSPEC (Primary Dx); SUPRV HIGH-RISK PREG NOS Social History Tobacco Use Types Packs/Day Years Used Date Smoking Tobacco: Never Assessed Comments Unknown Sex and Gender Information Value Date Recorded Sex Assigned at Not on file 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
--- OUTSIDE RECORDS SUMMARY | 2024-10-08 17:30 | XMS_ITS | Encounter Summary ---
Author Organization [facility] Address [address] [place] [address] Care Team Providers Care Java Designer Name Role Phone Gregorio Angel MD Primary Care Provider + Encounter Details Date Type Department Care Team (Late st Contact Info) Description 12/31/2023 Telephone [facility] Lillian Corona [place] [address] [place] [address] Navneet Hall DO [address] [place] [address] Social History Tobacco Use Types Packs/Day Years Used Date Smoking Tobacco: Every Day Cigarettes Smokeless Tobacco: Never Alcohol Use Standard Drinks/Week Comments No 0 (1 standard drink = 0.6 oz pur e alcohol) Feeling Safe Answer Date Recorded Are you in a relationship wi th someone who hurts you emotionally and/or physically? No 10/15/2023 Food Insecurity Answer Date Recorded Social/Environmental Concerns No concerns Transportation Needs Answer Date Record ed Social/Environmental Concerns No concerns Housing Stability Answer Date Recorded Social/Environmental Concerns No concerns Utility Needs Answer Date Recorded Social/Environmental Concerns No concerns Comments No Sex and Gender Information Value Date Recorded Sex Assigned at Not on file Legal Sex Female 3:25 PM SECURITY TEAM LEAD Gender Identity Not on file Sexual Orientation Not on file documented as of this encounter Miscellaneous Notes * Telephone Encounter - Cheryl Beal - 12/31/2023 9:11 AM CST Called Kathy to try to set her up an appointment with Dr. Palumbo for an EMB. Patient did not answer therefore left a voicemail and a MM. RITY TEAM LEAD documented in this encounter Plan of Treatment Not on file documented as of this encounter Visit Diagnoses Not on filedocumented in this encounter Care Teams Java Designer Relationship Specialty Start Date End Date Gregorio Angel MD [address] [place] [id number] PCP - General Family Practice 12/03/11 documented as of this encounter
--- OUTSIDE RECORDS SUMMARY | 2024-10-08 17:30 | XMS_ITS | Encounter Summary ---
Author Organization [facility] Address [address] [place] [address] Care Team Providers Care Requisition Approver Name Role Phone Gregorio Angel MD Primary Care Provider + Encounter Details Date Type Department Care Team (Latest Contact Info) Description 02/22/2001 Outpatient Historical [facility] Medicine[address] [phone] Nick Rojas MD [address] [address] SUPERVIS OTHER NORMAL PREG (Primary Dx) Social History Tobacco Use Types Packs/Day Years Used Date Smoking Tobacco: Never Assessed Comments Unknown Sex and Gender Information Value Date Recorded Sex Assigned at Not on file Legal Sex Female 3:17 AM CORN GRINDER Gender Identity Not on file Sexual Orientation Not on file documented as of this encounter Plan of Treatment Not on file documented as of this encounter Visit Diagnoses Diagnosis Supervision of other normal - Primary documented in this encounter Care Teams Requisition Approver Relationship Specialty Start Date End Date Gregorio Angel MD PCP - General Family Practice 12/03/11 documented as of this encounter
--- OUTSIDE RECORDS SUMMARY | 2024-10-08 17:30 | XMS_ITS | Encounter Summary ---
Author Organization [facility] Address [address] [place] [address] Care Team Providers Care Manager Of Loss Prevention Operations Name Role Phone Gregorio Angel MD Primary Care Provider + Reason for Visit * Reason Onset Date Comments Referral 01/06/2024 Encounter Details Date Type Department Care Team (Late st Contact Info) Description 01/06/2024 Telephone [facility] Lillian Corona [place] [address] [place] [address] Navneet Hall DO [address] [place] [address] Referral Social History Tobacco Use Types Packs/Day Years Used Date Smoking Tobacco: Every Day Cigarettes Smokeless Tobacco: Never Alcohol Use Standard Drinks/Week Comments No 0 (1 standard drink = 0.6 oz pur e alcohol) Feeling Safe Answer Date Recorded Are you in a relationship wi th someone who hurts you emotionally and/or physically? No 01/10/2024 Food Insecurity Answer Date Recorded Social/Environmental Concerns No concerns Transportation Needs Answer Date Record ed Social/Environmental Concerns No concerns Housing Stability Answer Date Recorded Social/Environmental Concerns No concerns Utility Needs Answer Date Recorded Social/Environmental Concerns No concerns Comments No Sex and Gender Information Value Date Recorded Sex Assigned at Not on file Legal Sex Female 3:25 PM PHOTOGRAPHY PROFESSOR Gender Identity Not on file Sexual Orientation Not on file documented as of this encounter Miscellaneous Notes * Telephone Encounter - Freda Treadwell - 01/06/2024 5:41 PM PHOTOGRAPHY PROFESSOR Called pt. Pt answered and was able to make appointment. OGRAPHY PROFESSOR documented in this encounter Plan of Treatment Not on file documented as of this encounter Visit Diagnoses Not on filedocumented in this encounter Care Teams Manager Of Loss Prevention Operations Relationship Specialty Start Date End Date Gregorio Angel MD [address] [place] [phone] PCP - General Family Practice 12/03/11 documented as of this encounter
--- OUTSIDE RECORDS SUMMARY | 2024-10-08 17:30 | XMS_ITS | Encounter Summary ---
Author Organization [facility] Address [address] [place] [address] Care Team Providers Care Supervisor Intelligence Analyst Name Role Phone Gregorio Angel MD Primary Care Provider + Encounter Details Date Type Department Care Team (Latest Contact Info) Description 07/28/2004 Outpatient Historical [facility] Medicine[address] [address] Tamanna Lo MD [address] [place] [address] SUPERVIS OTHER NORMAL PREG (Primary Dx) Social History Tobacco Use Types Packs/Day Years Used Date Smoking Tobacco: Never Assessed Comments Unknown Sex and Gender Information Value Date Recorded Sex Assigned at Not on file Legal Sex Female 3:17 AM CUSTOMER ACCOUNTS ADVISOR Gender Identity Not on file Sexual Orientation Not on file documented as of this encounter Plan of Treatment Not on file documented as of this encounter Procedures Procedure Name Priority Date/Time Associated Diagnosis Comments DRUG SCREEN, URINE Routine 07/28/2004 1: 28 PM CDT documented in this encounter Results * (ABNORMAL) DRUG SCREEN, URINE (07/28/2004 1:28 PM CDT) OPIATE QUAL, URINE Drug Negative Drug Negative INTERFACE SYSTEM AMPHETAMINE QUAL, URINE Drug Negative Drug Negative INTERFACE SYSTEM BARBITURATE QUAL, URINE Drug Negative Drug Negative INTERFACE SYSTEM COCAINE QUAL URINE Drug Negative Drug Negative INTERFACE SYSTEM PCP QUAL, URINE Drug Negative Drug Negative INTERFACE SYSTEM CANNABINOIDS QUAL, URINE Drug Positive(A) Drug Negative INTERFACE SYSTEM BENZODIAZEPINE QUAL, URINE Drug Negative Drug Negative INTERFACE SYSTEM 07/28/2004 1:28 PM CDT us Tamanna Lo MD URINE ORDERABLES Final Resul t INTERFACE SYSTEM Refer to clinic/hospital department documented in this encounter Visit Diagnoses Diagnosis Supervision of other normal - Primary documented in this encounter Care Teams Supervisor Intelligence Analyst Relationship Specialty Start Date End Date Gregorio Angel MD PCP - General Family Practice 12/03/11 documented as of this encounter
--- OUTSIDE RECORDS SUMMARY | 2024-10-08 17:30 | XMS_ITS | Encounter Summary ---
Author Organization [employer] [facility] Address [address] [place] [address] Care Team Providers Care Kindergarten Teacher Assistant Name Role Phone Gregorio Angel MD Primary Care Provider + Encounter Details Date Type Department Care Team (Late st Contact Info) Description 10/03/2024 External Device Data [facility] ABSTRACTION Provider, Abstract NO ADDRESS ON FILE Social History Tobacco Use Types Packs/Day Years [...] on file Legal Sex Female 3:25 PM MOLDING MACHINE OPERATOR Gender Identity Not on file Sexual Orientation Not on file documented as of this encounter Plan of Treatment Not on file documented as of this encounter Visit Diagnoses Not on filedocumented in this encounter Care Teams Kindergarten Teacher Assistant Relationship Specialty Start Date End Date Gregorio Angel MD [address] [place] [address] PCP - General Family Practice 12/03/11 documented as of this encounter
--- OUTSIDE RECORDS SUMMARY | 2024-10-08 17:30 | XMS_ITS | Encounter Summary ---
Author Organization [facility] Address [address] [place] [address] Care Team Providers Care Textile Dyer Name Role Phone Gregorio Angel MD Primary Care Provider + Encounter Details Date Type Department Care Team (Latest Contact Info) Description 06/25/1999 Outpatient Historical [facility]- [address] [phone] Sp Crabtree MD [address] [phone] Acute apical periodontitis (Primary Dx) Social History Tobacco Use Types Packs/Day Years Used Date Smoking Tobacco: Never Assessed Comments Unknown Sex and Gender Information Value Date Recorded Sex Assigned at Not on file Legal Sex Female 3:17 AM CHEMICAL MILLING PROCESSOR Gender Identity Not on file Sexual Orientation Not on file documented as of this encounter Plan of Treatment Not on file documented as of this encounter Visit Diagnoses Diagnosis Acute apical periodontitis- Primary Acute apical periodontitis of pulpal origin documented in this encounter Care Teams Textile Dyer Relationship Specialty Start Date End Date Gregorio Angel MD PCP - General Family Practice 12/03/11 documented as of this encounter
--- OUTSIDE RECORDS SUMMARY | 2024-10-08 17:30 | XMS_ITS | Encounter Summary ---
Author Organization [facility] Address [address] [place] [address] Care Team Providers Care Hydrometer Tester Name Role Phone Gregorio Angel MD Primary Care Provider + Encounter Details Date Type Department Care Team (Latest Contact Info) Description 07/28/2004 Outpatient Historical [facility] Medicine[address] [phone] Tamanna Lo MD [address] [place] [address] SUPERVIS OTHER NORMAL PREG (Primary Dx) Social History Tobacco Use Types Packs/Day Years Used Date Smoking Tobacco: Never Assessed Comments Unknown Sex and Gender Information Value Date Recorded Sex Assigned at Not on file Legal Sex Female 3:17 AM VOLLEYBALL ASSEMBLER Gender Identity Not on file Sexual Orientation Not on file documented as of this encounter Plan of Treatment Not on file documented as of this encounter Visit Diagnoses Diagnosis Supervision of other normal - Primary documented in this encounter Care Teams Hydrometer Tester Relationship Specialty Start Date End Date Gregorio Angel MD PCP - General Family Practice 12/03/11 documented as of this encounter
--- OUTSIDE RECORDS SUMMARY | 2024-10-08 17:30 | XMS_ITS | Encounter Summary ---
Author Organization [facility] Address [address] [place] [address] Care Team Providers Care Economic Development Specialist Name Role Phone Gregorio Angel MD Primary Care Provider + Encounter Details Date Type Department Care Team (Latest Contact Info) Description 12/10/2004 Outpatient Historical [facility] Medicine[address] [phone] Estuardo Goddard MD [facility] [place] [address] TWIN -UNSPEC (Primary Dx); SUPRV HIGH-RISK PREG NOS Social History Tobacco Use Types Packs/Day Years Used Date Smoking Tobacco: Never Assessed Comments Unknown Sex and Gender Information Value Date Recorded Sex Assigned at Not on file Legal Sex Female 3:17 AM CURRICULUM SUPERVISOR Gender Identity Not on file Sexual Orientation Not on file documented as of this encounter Plan of Treatment Not on file documented as of this encounter Visit Diagnoses Diagnosis Twin , unspecified as to episode of care(651.00)- Primary Twin , unspecified as to episode of care Unspecified high-risk documented in this encounter Care Teams Economic Development Specialist Relationship Specialty Start Date End Date Gregorio Angel MD PCP - General Family Practice 12/03/11 documented as of this encounter
--- OUTSIDE RECORDS SUMMARY | 2024-10-08 17:30 | XMS_ITS | Encounter Summary ---
Author Organization [facility] Address [address] Attn: Epic Prelude ADT [place] [address] Care Team Providers Care Project Management Professor Name Role Phone Gregorio Angel MD Primary Care Provider + Encounter Details Date Type Department Care Team (Late st Contact Info) Description 03/17/2001 Outpatient Historical Nick Rojas MD [address] [facility] [address] [place] [phone] Social History Tobacco Use Types Packs/Day Years Used Date Smoking Tobacco: Never Assessed Comments Unknown Sex and Gender Information Value Date Recorded Sex Assigned at Not on file Legal Sex Female 3:17 AM HABITAT CONSERVATION PLANNER Gender Identity Not on file Sexual Orientation Not on file documented as of this encounter Plan of Treatment Not on file documented as of this encounter Visit Diagnoses Not on filedocumented in this encounter Care Teams Project Management Professor Relationship Specialty Start Date End Date Gregorio Angel MD PCP - General Family Practice 12/03/11 documented as of this encounter
--- OUTSIDE RECORDS SUMMARY | 2024-10-08 17:30 | XMS_ITS | Encounter Summary ---
Author Organization [facility] Address [address] [place] [address] Care Team Providers Care Ground Nuclear Weapons Assembly Officer Name Role Phone Gregorio Angel MD Primary Care Provider + Encounter Details Date Type Department Care Team (Latest Contact Info) Description 11/30/1997 Outpatient Historical [facility] Medicine[address] [phone] Nick Rojas MD [address] [address] care and examination immediately after delivery (Primary Dx) Social History Tobacco Use Types Packs/Day Years Used Date Smoking Tobacco: Never Assessed Comments Unknown Sex and Gender Information Value Date Recorded Sex Assigned at Not on file Legal Sex Female 3:17 AM WARDROBE ASSISTANT Gender Identity Not on file Sexual Orientation Not on file documented as of this encounter Plan of Treatment Not on file documented as of this encounter Visit Diagnoses Diagnosis care and examination immediately after delivery- Primary documented in this encounter Care Teams Ground Nuclear Weapons Assembly Officer Relationship Specialty Start Date End Date Gregorio Angel MD PCP - General Family Practice 12/03/11 documented as of this encounter
--- OUTSIDE RECORDS SUMMARY | 2024-10-08 17:30 | XMS_ITS | Encounter Summary ---
Author Organization [facility] Address [address] [place] [address] Care Team Providers Care Test Engine Operator Name Role Phone Gregorio Angel MD Primary Care Provider + Encounter Details Date Type Department Care Team (Latest Contact Info) Description 12/17/2004 Outpatient Historical [facility] Medicine[address] [phone] Estuardo Goddard MD [address] [place] [address] TWIN -UNSPEC (Primary Dx) Social History Tobacco Use Types Packs/Day Years Used Date Smoking Tobacco: Never Assessed Comments Unknown Sex and Gender Information Value Date Recorded Sex Assigned at Not on file Legal Sex Female 3:[address] Gender Identity Not on file Sexual Orientation Not on file documented as of this encounter Plan of Treatment Not on file documented as of this encounter Visit Diagnoses Diagnosis Twin , unspecified as to episode of care(651.00)- Primary Twin , unspecified as to episode of care documented in this encounter Care Teams Test Engine Operator Relationship Specialty Start Date End Date Gregorio Angel MD PCP - General Family Practice 12/03/11 documented as of this encounter
--- OUTSIDE RECORDS SUMMARY | 2024-10-08 17:30 | XMS_ITS | Clinical Summary ---
Author Organization [facility] Address [address] [place]: Epic Prelude ADT [place] [address] Care Team Providers Care Roofer Helper Name Role Phone Gregorio Angel MD Primary Care Provider + Allergies Active Allergy Reactions Criticality Noted Date Comments Adhesive Tape-Silicones Rash Low 04/23/2023 Medications HYDROcodone-esa taminophen (NORCO) 5-325 mg tabletIndicatio ns:Acute cystitis with hematuria Take 1 Tablet by mouth every 4 hours as needed for Pain, Moderate. Max Daily Amount: 6 Tablets 18 Tablet 4 Active morphine (MS IR) 15 mg tabletIndicatio ns:Stone in renal pelvis Take 1 Tablet (15 mg) by mouth every 6 hours as needed for Pain. Max Daily Amount: 60 mg 20 Tablet 4 Active ibuprofen (MOTRIN) 800 mg tablet Take 800 mg by mouth every 6 hours as needed for Pain, Mild. Active naloxone (NARCAN) 4 mg/spray [place], Non-Aerosol EMERGENCY USE ONLY: Administer 1 spray (4 mg) in one nostril one time. May repeat in alternating nostrils every 2-3 min until responsive or EMS arrives. 2 Each 3 4 Active morphine (MS IR) 15 mg tabletIndicatio ns:Ureteral calculi Take 1 Tablet (15 mg) by mouth every 6 hours as needed for Pain. Max Daily Amount: 60 mg 20 Tablet 05/17/2023 4:06 PM CDT 4 Active levoFLOXacin (LEVAQUIN) 500 mg tabletIndicatio ns:Bacteria in urine Take 1 Tablet (500 mg) by mouth daily. 10 Tablet 4 Active tamsulosin (FLOMAX) 0.4 mg capsuleIndicati ons:Ureteral calculi Take 1 Capsule (0.4 mg) by mouth daily. 30 Capsule 4 Active HYDROcodone-esa taminophen (NORCO) 7.5-325 mg TabletIndicatio ns:Calculus of distal left ureter Take 1 Tablet by mouth every 8 hours as needed for Pain, Moderate. Max Daily Amount: 3 Tablets 20 Tablet 4 Active Active Problems Problem Noted Date Diagnosed Date Ureteral calculi 05/12/2023 Overview (05/12/2023): Left Steinstrasse. 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/2012 Resolved Problems Problem Noted Date Diagnosed Date Resolved Date Severe sepsis without septic shock 02/14/2023 02/15/2023 Acute metabolic encephalopathy 02/14/2023 02/15/2023 Encounters Date Type Department Care Team Description 10/03/2024 External Device Data STL ABSTRACTION Provider, Abstract 09/05/2024 External Device Data [facility] ABSTRACTION Provider, Abstract 07/18/2024 External Device Data [facility] ABSTRACTION Provider, Abstract from Last 3 Months Family History Medical History Relation Name Comments [...] on file Legal Sex Female 3:25 PM CHEF DE FROID Gender Identity Not on file Sexual Orientation Not on file Last Filed Vital Signs Vital Sign Reading Time Taken Comments Blood Pressure 112/63 01/10/2024 3:20 PM CHEF DE FROID Pulse 72 01/10/2024 3:20 PM CHEF DE FROID Temperature 36.3 C (97.4 F) 01/10/2024 3:20 PM CHEF DE FROID Respiratory Rate 16 01/10/2024 3:20 PM CHEF DE FROID Oxygen Saturation 98% 01/10/2024 3:20 PM CHEF DE FROID Inhaled Oxygen Concentration - - Weight 60.6 kg (133 lb 9.6 oz) 01/10/2024 11:11 AM CHEF DE FROID Height 162.6 cm (5' 4 ) 01/10/2024 11:11 AM CHEF DE FROID Body Mass Index 22.93 01/10/2024 11:11 AM CHEF DE FROID Plan of Treatment Health Maintenance Due Date Last Done Comments HEPATITIS B VACCINES (1 of 3 - 19+ 3-dose series) 11/16 HPV/Cotest (21-29) 1993 CERVICAL CANCER SCREENING 2002 HPV/Cotest (30-65) 2002 PAP SMEAR 2002 BREAST CANCER SCREENING 2012 COLORECTAL SCREENING 2017 Colorectal Cancer Screening 2017 FIT-DNA Q 3 years 2017 FIT/FOBT Q 1 year 2017 Flex Sig/CT Colonography Q 5 years 2017 ZOSTER VACCINE (1 of 2) 2022 INFLUENZA VACCINE (#1) 2024 DTAP/TDAP/TD VACCINES (2 - Td or Tdap) 07/29/2030 Medical Devices Implanted Type Area Demand Planner Device Identifier Shelf Expiration Date Model / Serial / Lot Stent Percuflex+ 8fr 24cm [id number] - [id number] Implanted:Qty: 1 on 05/17/2023 by Yasmin Mcclellan MD at [facility] Stent Left: Ureter [employer]- UROLOGY/DEHYDROGENATION CONVERTER HELPER [id number] 10/11/2025 [id number] 20 / / [id number] Stent Contour [id number] - [id number] Implanted:Qty: 1 on 01/10/2024 by Yasmin Mcclellan MD at [facility] Stent Left: Ureter [employer]- UROLOGY/DEHYDROGENATION CONVERTER HELPER 08/22/2026 [id number] 30 / / [id number] Explanted Type Area Demand Planner Device Identifier Shelf Expiration Date Model / Serial / Lot Stent Contour [id number] - [id number] Implanted:Qty: 1 on 02/14/2023 by Ashutosh Alba MD at [facility] Explanted:Qty: 1 on 04/26/2023 by Yasmin Mcclellan MD at [facility] Stent Left: Ureter [employer]- UROLOGY/DEHYDROGENATION CONVERTER HELPER [id number] 09/04/2025 [id number] 20 / / [id number] Stent Percuflex+ 8fr 24cm [id number] - [id number] Implanted:Qty: 1 on 04/26/2023 by Yasmin Mcclellan MD at [facility] Explanted:Qty: 1 on 05/17/2023 by Yasmin Mcclellan MD at [facility] Stent Left: Ureter [employer]- UROLOGY/DEHYDROGENATION CONVERTER HELPER [id number] 05/07/2025 [id number] 20 / / [id number] Insurance [facility] COMM[facility] PL[place] [facility] [id number] * Guarantor: Fitz Besssa Thomas Account Type Relation to Patient Date of Phone Billing Address Personal/Family Self 1970 [id number] [place] [address] RX INFOCROSSING Medicaid RX [place] PLANS (INTERNAL) [facility] Internal Plans Advance Directives For more information, please contact: [phone] * Full Code (Latest Code Status on File) Date Activated Date Inactivated Comments 01/10/2024 1:00 PM 01/10/2024 6:05 PM * Full Code Date Activated Date Inactivated Comments 05/17/2023 12:58 PM 05/17/2023 7:16 PM * Full Code Date Activated Date Inactivated Comments 05/09/2023 8:46 AM 05/10/2023 1:50 PM * Full Code Date Activated Date Inactivated Comments 02/14/2023 2:12 AM 02/16/2023 6:25 PM * Full Code Date Activated Date Inactivated Comments 02/14/2023 1:09 AM 02/14/2023 2:12 AM Care Teams Roofer Helper Relationship Specialty Start Date End Date Gregorio Angel MD [address] [place] [phone] PCP - General Family Practice 12/03/11
--- OUTSIDE RECORDS SUMMARY | 2024-10-08 17:30 | XMS_ITS | Encounter Summary ---
Author Organization [facility] Address [address] [place] [address] Care Team Providers Care Soliciting Freight Agent Name Role Phone Gregorio Angel MD Primary Care Provider + Encounter Details Date Type Department Care Team (Latest Contact Info) Description 09/16/2004 Outpatient Historical [facility] Medicine [address] [phone] Estuardo Goddard MD [facility] [place] [address] TWIN -UNSPEC (Primary Dx) Social History Tobacco Use Types Packs/Day Years Used Date Smoking Tobacco: Never Assessed Comments Unknown Sex and Gender Information Value Date Recorded Sex Assigned at Not on file Legal Sex Female 3:17 AM OIM ARCHITECT Gender Identity Not on file Sexual Orientation Not on file documented as of this encounter Plan of Treatment Not on file documented as of this encounter Visit Diagnoses Diagnosis Twin , unspecified as to episode of care(651.00)- Primary Twin , unspecified as to episode of care documented in this encounter Care Teams Soliciting Freight Agent Relationship Specialty Start Date End Date Gregorio Angel MD PCP - General Family Practice 12/03/11 documented as of this encounter
--- OUTSIDE RECORDS SUMMARY | 2024-10-08 17:30 | XMS_ITS | Encounter Summary ---
Author Organization [facility] Address [address] [place] [address] Care Team Providers Care Field Training Agent Name Role Phone Gregorio Angel MD Primary Care Provider + Encounter Details Date Type Department Care Team (Latest Contact Info) Description 11/17/2004 Outpatient Historical [facility] Medicine[address] [phone] Estuardo Goddard MD [facility] [place] [address] TWIN -UNSPEC (Primary Dx); SUPRV HIGH-RISK PREG NOS Social History Tobacco Use Types Packs/Day Years Used Date Smoking Tobacco: Never Assessed Comments Unknown Sex and Gender Information Value Date Recorded Sex Assigned at Not on file Legal Sex Female 3:17 AM NORMALIZER Gender Identity Not on file Sexual Orientation Not on file documented as of this encounter Plan of Treatment Not on file documented as of this encounter Visit Diagnoses Diagnosis Twin , unspecified as to episode of care(651.00)- Primary Twin , unspecified as to episode of care Unspecified high-risk documented in this encounter Care Teams Field Training Agent Relationship Specialty Start Date End Date Gregorio Angel MD PCP - General Family Practice 12/03/11 documented as of this encounter
--- OUTSIDE RECORDS SUMMARY | 2024-10-08 17:30 | XMS_ITS | Encounter Summary ---
Author Organization [facility] Address [address] [place] [address] Care Team Providers Care Grain Origination Specialist Name Role Phone Gregorio Angel MD Primary Care Provider + Encounter Details Date Type Department Care Team (Latest Contact Info) Description 04/19/2001 Outpatient Historical [facility] Medicine[address] [phone] Nick Rojas MD [address] [phone] SUPERVIS OTHER NORMAL PREG (Primary Dx) Social History Tobacco Use Types Packs/Day Years Used Date Smoking Tobacco: Never Assessed Comments Unknown Sex and Gender Information Value Date Recorded Sex Assigned at Not on file 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
--- OUTSIDE RECORDS SUMMARY | 2024-10-08 17:30 | XMS_ITS | Encounter Summary ---
Author Organization [facility] Address [address] [place] [address] Care Team Providers Care Mri Supervisor Name Role Phone Gregorio Angel MD Primary Care Provider + Encounter Details Date Type Department Care Team (Latest Contact Info) Description 11/10/2004 Outpatient Historical [facility] Medicine[address] [phone] Estuardo Goddard MD [facility] [place] [address] TWIN -UNSPEC (Primary Dx); SUPRV HIGH-RISK PREG NOS Social History Tobacco Use Types Packs/Day Years Used Date Smoking Tobacco: Never Assessed Comments Unknown Sex and Gender Information Value Date Recorded Sex Assigned at Not on file 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
--- OUTSIDE RECORDS SUMMARY | 2024-10-08 17:30 | XMS_ITS | Encounter Summary ---
Author Organization [facility] Address [address] [place] [address] Care Team Providers Care Codifier Name Role Phone Gregorio Angel MD Primary Care Provider + Encounter Details Date Type Department Care Team (Latest Contact Info) Description 12/24/2004 Outpatient Historical [facility] Medicine[address] [phone] Estuardo Goddard MD [facility] [place] [address] TWIN -UNSPEC (Primary Dx); SUPRV HIGH-RISK PREG NOS Social History Tobacco Use Types Packs/Day Years Used Date Smoking Tobacco: Never Assessed Comments Unknown Sex and Gender Information Value Date Recorded Sex Assigned at Not on file 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
--- OUTSIDE RECORDS SUMMARY | 2024-10-08 17:30 | XMS_ITS | Encounter Summary ---
Author Organization 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
--- OUTSIDE RECORDS SUMMARY | 2024-10-08 17:30 | XMS_ITS | Encounter Summary ---
Author Organization [facility] Address [address] [place] [address] Care Team Providers Care Stitch Burnisher Name Role Phone Gregorio Angel MD Primary Care Provider + Encounter Details Date Type Department Care Team (Latest Contact Info) Description 02/03/2001 Outpatient Historical [facility] Medicine[address] [phone] Nick Rojas MD [address] [phone] SUPERVIS OTHER NORMAL PREG (Primary Dx) Social History Tobacco Use Types Packs/Day Years Used Date Smoking Tobacco: Never Assessed Comments Unknown Sex and Gender Information Value Date Recorded Sex Assigned at Not on file 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
--- OUTSIDE RECORDS SUMMARY | 2024-10-08 17:30 | XMS_ITS | Encounter Summary ---
Author Organization [facility] Address [address] [place] [address] Care Team Providers Care Heel Cover Softener Name Role Phone Gregorio Angel MD Primary Care Provider + Encounter Details Date Type Department Care Team (Latest Contact Info) Description 05/18/2001 Outpatient Historical [facility] Medicine[address] [phone] Nick Rojas MD [address] [phone] SUPERVIS OTHER NORMAL PREG (Primary Dx) Social History Tobacco Use Types Packs/Day Years Used Date Smoking Tobacco: Never Assessed Comments Unknown Sex and Gender Information Value Date Recorded Sex Assigned at Not on file 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
== END 2024-10-08 18:49 | disposition home or self-care (01) ==
PROVIDERS: Emergency Provider Family Medicine; PCP Nurse Practitioner Family
DX: T63.441A Toxic effect of venom of bees, accidental (unintentional), initial encounter (principal); X58.XXXA Exposure to other specified factors, initial encounter; Z72.0 Tobacco use
CPT/HCPCS: 99283

== ENCOUNTER → 2024-12-19 14:46 | Outpatient (BNVA) | payer MEDICAID, SELFPAY | PROVIDERS: PCP Nurse Practitioner Family; Visit Provider Physician Assistant | DX: M75.41 Impingement syndrome of right shoulder (principal); M25.811 Other specified joint disorders, right shoulder | CPT/HCPCS: 73030 ==

== ENCOUNTER 2025-01-03 14:36 | Outpatient (CLI) | payer MEDICAID, SELFPAY ==
--- NOTE | 2025-01-03 14:30 | MR_ITS ---
WS: [id number] MRI RIGHT SHOULDER HISTORY: impingement of right rotator cuff COMPARISON: Radiograph 12/19/2024 TECHNIQUE: Multiplanar sequences of the shoulder joint are submitted. Mild AC joint arthritis. Small amount of increased T2 signal through the AC joint. Small hypertrophic osteophytes from the distal clavicle. Mild subacromial impingement by an enthesopathy from the distal acromion. No os acromion. Absent biceps tendon from the bicipital groove. Very slight narrowing of the glenohumeral joint. Irregular fluid gap measuring 9 mm in the distal supraspinatus tendon directly over the humeral head. Proximal tendon is slightly retracted and wavy. Additionally supraspinatus tendinopathy associated with both the medial and lateral aspects aspects of the tendon tear. Subscapularis tendon is wavy. Waviness indicates there is most likely a tendon tear. There is some increased fluid associated with the lesser tuberosity of the humeral head. I suspect there is a focal high-grade tear present. Subscapularis tendon tears can also be associated with dislocation of the biceps tendon. Edema in the infraspinatus muscle. There is an interstitial tear with a large amount of fluid extending along the tendon within the muscle. Increased T2 signal in the rotator cuff interval. There is increased signal in the superior labrum associated with the biceps vincent system. Coracohumeral ligament is not identified. Subchondral cyst in the humeral head. MR/MR shoulder RT wo con* [id number] IMPRESSION: 1. Complete full-thickness tear distal supraspinatus tendon measures 9 mm. Add itional marked tendinopathy on both sides of the tendon tear. 2. Absent biceps tendon from the bicipital groove. Long head of the biceps ten don is not identified. The short head appears intact. 3. Subscapularis tendon is wavy indicating there is a tear. Increased fluid no eze adjacent to the lesser tuberosity indicating this is probably the area of t he tear. Biceps tendon dislocations are often associated with subscapularis ten don tears. 4. Mild AC joint arthritis. 5. Extensive edema within the infraspinatus muscle with an interstitial tear o f the tendon. 6. Increased T2 signal in the rotator cuff interval consistent with rotator cu ff interval tear.. Coracohumeral ligament is not identified. 7. Superior labral tear suspected. Tear is likely associated with the biceps p ulley system abnormality.
== END 2025-01-03 14:37 | disposition home or self-care (01) ==
LOC: RAD 14:38
PROVIDERS: PCP Nurse Practitioner Family; Visit Provider Physician Assistant
DX: M25.811 Other specified joint disorders, right shoulder (principal); M75.121 Complete rotator cuff tear or rupture of right shoulder, not specified as traumatic; M25.711 Osteophyte, right shoulder; M19.011 Primary osteoarthritis, right shoulder; M75.41 Impingement syndrome of right shoulder
CPT/HCPCS: 73221